=== PATIENT | female | born 1975 | race Caucasian/White ===

== ENCOUNTER → 2022-02-03 | Outpatient (CLI) | payer OTHER ==
--- NOTE | 2022-02-04 11:29 | MM ---
Reason for exam: screening (asymptomatic). Baseline mammogram. Physical Findings: A clinical breast exam by your physician is recommended on an annual basis and results should be correlated with mammographic findings. MG Screening Mammo w CAD Bilateral CC, MLO, and XCCL view(s) were taken. There are scattered fibroglandular densities. Finding: There is a 6 mm circumscribed oval mass located 2 cm from the nipple in the upper outer quadrant, anterior position of the left breast. ASSESSMENT: Incomplete: need additional imaging evaluation, BI-RAD 0 RECOMMENDATION: Ultrasound of the left breast. [facility] will attempt to contact patient to return for ultrasound.
== END | disposition home or self-care (01) ==
LOC: RADMAMWWP 12:36
PROVIDERS: ATTEND Family Medicine
DX: Z12.31 Encounter for screening mammogram for malignant neoplasm of breast (principal)
CPT/HCPCS: 77067